=== PATIENT | female | born 1955 | race Caucasian/White ===

== ENCOUNTER 2020-11-27 16:30 | Emergency (ER) | payer OTHER, SELFPAY ==
[2020-11-27 16:55] VITALS: BP 132/78; PULSE 95; RESP 16; TEMP 35.7; O2SAT 98
--- NOTE | 2020-11-27 17:04 | ED_ITS ---
HPI - Nausea/Vomiting/Diarrhea General Chief complaint: Nausea/Vomiting/Diarrhea Stated complaint: abdominal pain Source: patient Mode of arrival: ambulatory Limitations: no limitations History of Present Illness HPI Narrative: Patient is a 65-year-old female who presents complaining of nausea, vomiting and diarrhea x3 days. She reports semisolid stool this morning. She reports abdominal cramping. She denies taking [id number] medications for symptom relief. Related Data Allergies Allergy/AdvReac Type Severity Reaction Status Date / Time levofloxacin Allergy Severe Hives / Unverified 05/07/19 09:46 Red Face ferrous sulfate Allergy Unknown Verified 07/25/10 14:25 Review of Systems Review of Systems: Narrative: CONSTITUTIONAL: Denies fever, chills, or sweats. EYES: Denies visual changes, redness, or discharge. ENT: Denies rhinorrhea, congestion, sore throat, or otalgia. CARDIOVASCULAR: Denies chest pain, palpitations, or edema. RESPIRATORY: Denies cough or dyspnea. GASTROINTESTINAL: Reports abdominal cramping, nausea, vomiting, and diarrhea GENITOURINARY: Denies dysuria or hematuria. SKIN: Denies rash or itching. MUSCULOSKELETAL: Denies back pain, joint pain, or myalgia. NEUROLOGIC: Denies headache, numbness, dizziness, or weakness. PSYCHIATRIC: Denies anxiety or depression. [facility] Past Medical History Medical History Anemia Angina pectoris, unspecified Anxiety Bronchitis Fracture Hyperthyroidism Migraines Pericarditis Pneumonia Postmenopausal UTI (urinary tract infection) Surgical History Surgical History H/O tubal ligation H/O: History of cardiac cath Family History Family History (Updated 11/27/20 @ 17:07 by CHELSEA Parry) Sibling Family history of diabetes mellitus in first degree relative Other Heart disease Social History Social History Alcohol intake: current MDM - Nausea/Vomiting/Diarrhea Differential Diagnosis Differential diagnosis: Likely traveler's diarrhea, food poisoning, gastroenteritis and dehydration Critical Care Time Critical Care Time Critical Care Time: No Discharge Plan Discharge Clinical Impression: Gastroenteritis, Dehydration Patient Disposition: Home, Self-Care Condition: Stable Instructions: Dehydration (ED), Gastroenteritis (DC) Additional Instructions: Please stay well-hydrated. Take Zofran as needed. Follow-up with your PCP on Friday if diarrhea continues. If you develop black stools, please go to the emergency department immediately for further evaluation. Prescriptions: New ondansetron 4 mg tablet,disintegrating 4 mg PO .Q6prn PRN (Reason: nausea and vomiting) Qty: 20 RF: 0 famotidine 20 mg tablet 20 mg PO DAILY Qty: 14 RF: 0 Follow-up/Referrals: Anai,Annabel Wang MD [Primary Care Provider] -
== END 2020-11-27 17:45 | disposition home or self-care (01) ==
PROVIDERS: Emergency Provider Nurse Practitioner; PCP Internal Medicine
DX: K52.9 Noninfective gastroenteritis and colitis, unspecified (principal); E86.0 Dehydration; I20.9 Angina pectoris, unspecified; D64.9 Anemia, unspecified; E05.90 Thyrotoxicosis, unspecified without thyrotoxic crisis or storm
CPT/HCPCS: 99213; G0463

== ENCOUNTER → 2022-02-25 13:09 | Outpatient (CLI) | payer MEDICARE, SELFPAY ==
--- NOTE | ~2022-02-25 | US_ITS ---
EXAMINATION: US thyroid DATE: 02/25/2022 13:30 INDICATION: Hyperthyroidism. TECHNIQUE: Multiple ultrasound images of the thyroid were obtained. COMPARISON: Ultrasound 07/13/2019 FINDINGS: The right thyroid lobe measures 7.3 x 2.3 x 2.7 cm. The left thyroid lobe measures 7.1 x 2.3 x 2.4 c m. The thyroid demonstrates coarsened echotexture. Vascularity is normal. In the left thyroid lobe, there is a 6 mm solid, hypoechoic, [id number] nodule with smooth margin without echogenic foci ( TI-RADS TR4). IMPRESSION: 1. Chronic thyroid enlargement. 2. Stable small thyroid nodule, likely not clinically significant. No follow-up is needed. Reviewed, dictated and finalized at location A.
== END ==
PROVIDERS: Visit Provider Internal Medicine
DX: E04.1 Nontoxic single thyroid nodule (principal)
CPT/HCPCS: 76536

== ENCOUNTER 2025-04-17 14:17 | Emergency (ER) | payer MEDICARE, SELFPAY ==
[2025-04-17 14:29] VITALS: BP 151/73; PULSE 69; RESP 16; TEMP 36.2; O2SAT 99
--- NOTE | 2025-04-17 15:16 | ED_ITS ---
HPI - Dizziness General Chief Complaint: Dizziness Stated Complaint: DIZZY Source: patient and RN notes reviewed Mode of arrival: ambulatory Limitations: no limitations History of Present Illness HPI Narrative: 69 y/o female presented for c/o dizziness on and off for 1.5 weeks. Endorses room spinning sensation. Says today dizziness is worse since bending over and moving around quickly this morning. Says the left sinus and left ear feel full. Denies chest pain, palpitations, nausea, vomiting, headache or vision changes. Denies facial numbness, tingling, extremity weakness. Not taking anything for symptoms, does not want to take meds. Related Data Allergies Allergy/AdvReac Type Severity Reaction Status Date / Time levofloxacin Allergy Severe Hives / Verified 11/27/20 18:09 Red Face ferrous sulfate Allergy Unknown Unknown Verified 11/27/20 18:09 Review of Systems Review of Systems: CONSTITUTIONAL: Denies body aches, fever, chills, or sweats. EYES: Denies visual changes, redness, or discharge. ENT: Denies rhinorrhea, congestion, sore throat, or otalgia. CARDIOVASCULAR: Denies chest pain, palpitations, or edema. RESPIRATORY: Denies cough or dyspnea. GASTROINTESTINAL: Denies abdominal pain, nausea, vomiting, or diarrhea. MUSCULOSKELETAL: Denies back pain, joint pain, or myalgia. NEUROLOGIC: Endorses dizziness denies headache, denies numbness, tingling, or weakness PSYCH: Denies depression or anxiety. All systems reviewed & are unremarkable except as noted in HPI and below PMFSH Past Medical History Medical History Anemia Angina pectoris, unspecified Anxiety Bronchitis Fracture Hyperthyroidism Migraines Pericarditis Pneumonia Postmenopausal UTI (urinary tract infection) Surgical History Surgical History H/O tubal ligation H/O: History of cardiac cath Family History Family History (Updated 11/27/20 @ 17:07 by Nereida Momin, CHELSEA) Sibling Family history of diabetes mellitus in first degree relative Other Heart disease Social History Social History Alcohol intake: current Comments At time of signature, I have reviewed and agree with nursing past medical, surgical, social and family history unless otherwise noted. Please see nursing chart for further information. There is no relevant family history pertinent to the presenting complaint Exam Narrative: GENERAL: Well-appearing HEAD: Normocephalic, atraumatic. EYES: PERRLA, EOMI. ENT: Mucous membranes pink and moist. No rhinorrhea. TMs normal bilaterally. NECK: Normal AROM. CHEST: No respiratory distress. Clear to auscultation. HEART: Regular rate and rhythm. No murmur appreciated. Normal peripheral pulses. SKIN: Warm, dry, no rash. Capillary refill normal. Normal skin turgor. NEURO:No focal deficits. Alert and oriented x3. EOMs intact without nystagmus. No facial droop/asymmetry noted bilaterally. Grimace intact. Intact sensation in face. Hearing intact bilaterally. Shoulder shrug intact. Strength 5/5 bilateral upper extremities. Ambulatory exam with a normal based, steady gait. PSYCH: Normal affect. Talkative Course Course Emergency Course: Patient is aware of diagnosis, understands and agrees to treatment plan. Anticipatory guidance given. Patient agrees to follow-up as directed and is aware of reasons to seek care at the emergency department. Portions of this record may have been created with voice recognition software Level of Care: Express Care Visit Vital Signs Vital signs: Vital Signs Temperature 97.1 F L 04/17/25 14:29 Pulse Rate 69 04/17/25 14:29 Respiratory Rate 16 04/17/25 14:29 Blood Pressure 151/73 H 04/17/25 14:29 Pulse Oximetry 99 04/17/25 14:29 Temperature 97.1 F L 04/17/25 14:29 Pulse Rate 69 04/17/25 14:29 Respiratory Rate 16 04/17/25 14:29 Blood Pressure 151/73 H 04/17/25 14:29 Pulse Oximetry 99 04/17/25 14:29 MDM - Dizziness MDM Narrative Medical decision making narrative: Discussed physical exam findings; pt elected to attempt Trevor maneuver and reported improvement in ear fullness and felt better and 'stable,' no emesis. Declined meclizine. Advised supportive measures and signs/symptoms to go to the ER. Pt is appropriate for outpt treatment and f/u. Differential Diagnosis Differential diagnosis: Likely adverse reaction to drug, benign paroxysmal positional vertigo, orthostatic hypotension, vertebral basilar insufficiency, cerebrovascular accident, acute vestibular neuronitis and transient cerebral is chemia Discharge Plan Discharge Clinical Impression: Benign paroxysmal positional vertigo Patient Disposition: Home Condition: Stable Instructions: Benign Paroxysmal Positional Vertigo (ED) Additional Instructions: Change positions slowly Sit down immediately if you feel dizzy or lightheaded Increase water intake, stay hydrated You can attempt the Trevor maneuver at home (canalith repositioning technique) meclizine may help with motion sickness recommend close follow-up with your primary care provider. Call tomorrow to schedule appointment Watch for worsening symptoms (headache, vision changes, dizziness that does not go away, chest pain, heart racing, sweating) Go to the ER for these symptoms or any other concerns. Patient Language: Uzbek Prescriptions: No Action ondansetron 4 mg tablet,disintegrating 4 mg PO .Q6prn PRN (Reason: nausea and vomiting) Qty: 20 0RF famotidine 20 mg tablet 20 mg PO DAILY Qty: 14 0RF Follow-up/Referrals: PHYSICIAN,MODERN AND CONTEMPORARY ART CURATOR [Primary Care Provider] - Time of Disposition: 15:19 Quality Sade Coma Scale Verbal: Oriented and Alert Motor: Follows Commands Acute Stroke Pre-Treatment Evaluation Acute Ischemic Stroke Pretreatment Evaluation: Acute Ischemic Stroke Pre- Treatment Evaluation Inclusion Criteria (must answer yes to questions 1 and 2) 1. Age 18 Years Or Older: No 2. Onset Of Stroke Symptoms Well Established To Be Less Than 3 Hours: No 3. Clinical Diagnosis Of Ischemic Stroke Causing Measureable Neurological Deficit And A Non-Contrast Head CT Showing NO Hemorrage: No Contraindications (0-3 Hours) 5. Stroke Or Severe Head Trauma Within Past 3 Months: No 6. Known History Of Intracranial Hemorrage: No 7. Symptoms Or Clinical Presentation Suggestion Of Subarachnoid hemorrhage: No 8. Gastrointestinal Or Urinary Tract hemorrhage Within 21 Days: No 9. Prothrombin Time (TP) Greater Than 15 Seconds or An INR Greater Than 1.7 Or An Elevated Activated Partial Throboplastin Time (aPTT): No 10. Platelet Count <100,000/ml: No 11. Glucose Lower Than 50mg/dl Or Greater than 400mg/dl: No 12. Seizure At Onset Stroke: No 13. Acute Myocardial Infarction Or Post Myocardial Infarction Pericarditis: No 14. Arterial Puncture At A Non-Compressible Site, Biopsy of Internal Organ, Within The Preceding 7 Days: No 15. Major Surgery Or Serious Trauma (Besides Head) In The Previous 14 Days: No 16. Uncontrolled Or Sustained SBP (systolic>185 mmHg) or DBP (diastolic>110 mmHg) Or Requiring Aggressive Treatment To Lower: No 17. : No Contraindications (3-4.5 Hours) 1. Age Less Than 18 or Greater Than 80 years: No 2. Severe Stroke Assessed Clinically (NIHSS Score Greater Than 25): No 3. Combination Or Previous Stroke Or Diabetes Mellitus: No 4. Symptoms Minor Or Rapidly Improving: No
== END 2025-04-17 15:40 | disposition home or self-care (01) ==
DX: H81.10 Benign paroxysmal vertigo, unspecified ear (principal); E05.90 Thyrotoxicosis, unspecified without thyrotoxic crisis or storm; I20.9 Angina pectoris, unspecified
CPT/HCPCS: 99211; G0463